=== PATIENT | male | born 1950 | race Caucasian/White ===

== ENCOUNTER 2016-12-21 12:33 | Outpatient (CLI) | payer MEDICARE, OTHER | END 2016-12-21 23:59 | LOC: LAB.WCP 12:33 | PROVIDERS: ATTEND Family Medicine | DX: Z00.00 Encounter for general adult medical examination without abnormal findings (principal); Z12.5 Encounter for screening for malignant neoplasm of prostate | CPT/HCPCS: 36415; 86787; G0103; 84153 ==

== ENCOUNTER 2016-12-21 12:38 | Outpatient (CLI) | payer MEDICARE, OTHER | END 2016-12-21 23:59 | DX: Z12.5 Encounter for screening for malignant neoplasm of prostate (principal) ==

== ENCOUNTER 2017-10-10 08:00 | Outpatient (CLI) | payer MEDICARE ==
[2017-10-10 13:09] LABS: BASOPHILS % (AUTO) 0.7 %; EOSINOPHILS # (AUTO) 0.2 10^3/uL (0.0-0.7); EOSINOPHILS % (AUTO) 5.4 %; HGB - HEMOGLOBIN 14.5 g/dL (14.0-18.0); LYMPHOCYTES # (AUTO) 2.2 10^3/uL (1.5-3.5); MEAN CORPUSCULAR HEMOGLOBIN 34.4 pg (27.0-31.0); MEAN CORPUSCULAR HGB CONC 34.3 g/dL (32.0-36.0); MEAN CORPUSCULAR VOLUME 100.1 fL (80.0-94.0); MEAN PLATELET VOLUME 9.1 fL (7.4-11.4); MONOCYTES # (AUTO) 0.4 10^3/uL (0.0-1.0); MONOCYTES % (AUTO) 8.1 %; NEUTROPHILS # (AUTO) 1.6 10^3/uL (1.5-6.6); NEUTROPHILS % (AUTO) 35.8 %; PLT - PLATELET COUNT 166 10^3/uL (130-450); RED CELL DISTRIBUTION WIDTH 12.4 % (12.0-15.0); WHITE BLOOD COUNT 4.5 x10^3/uL (4.8-10.8)
[2017-10-10 14:05] LABS: ALBUMIN 4.6 g/dL (3.2-5.5); ALBUMIN/GLOBULIN RATIO 1.8 (1.0-2.2); ALKALINE PHOSPHATASE 56 IU/L (42-121); ALT ALANINE AMINOTRANSFERASE 40 IU/L (10-60); AST ASPARTATE AMINOTRANSFERASE 32 IU/L (10-42); BILIRUBIN,TOTAL 1.7 mg/dL (0.2-1.0); BUN - BLOOD UREA NITROGEN 15 mg/dL (6-20); CALCIUM 9.1 mg/dL (8.5-10.3); CARBON DIOXIDE - CO2 26 mmol/L (21-32); CHLORIDE 104 mmol/L (101-111); CHOL/HDL RATIO 2.5 (<5.0); CHOLESTEROL 173 mg/dL; CREATININE 0.9 mg/dL (0.6-1.2); GFR - MDRD 84 (>89); GLUCOSE 100 mg/dL (70-100); HDL CHOLESTEROL 69 mg/dL; LDL CHOLESTEROL,CALCULATED 67 mg/dL; SODIUM 137 mmol/L (135-145); TOTAL PROTEIN 7.2 g/dL (6.7-8.2); VLDL CHOLESTEROL 37 mg/dL
== END 2017-10-10 08:01 | disposition home or self-care (01) ==
LOC: LAB.WCP 08:00
PROVIDERS: ATTEND Family Medicine
DX: I10 Essential (primary) hypertension (principal); E78.5 Hyperlipidemia, unspecified
CPT/HCPCS: 36415; 80053; 80061; 83721; 85025

== ENCOUNTER 2017-11-05 09:50 | Emergency (ER) | payer MEDICARE ==
[2017-11-05 10:07] VITALS: BP 140/79
--- NOTE | 2017-11-05 10:32 | ED Physician Documentation ---
History of Present Illness - Stated complaint Stated Complaint: LEFT LEG SWOLLEN/PX - Chief complaint Chief Complaint: Ext Problem - History obtained from History obtained from: Patient - History of Present Illness Timing: How many days ago (3) - Additonal information Additional information: 67-year-old male recalls that about 3 days ago he played 18 holes of golf and was working on a shed at his home. He was awakened in the middle of the night by an acute cramp in his left leg posteriorly cramping was from the calf all the way up to the mid thigh and this was unrelenting for about an hour and a half. The patient noticed the next day that he had some swelling to the entire leg and he has some pain over the Achilles tendon. He is worried about a DVT. He did not otherwise injure the leg but he did do a lot of work that that day and he thinks it may be possible that he was dehydrated as well. Review of Systems Constitutional: denies: Fever, Chills, Myalgias Eyes: denies: Decreased vision Ears: denies: Ear pain Nose: denies: Congestion Throat: denies: Sore throat Cardiac: denies: Chest pain / pressure, Palpitations Respiratory: denies: Dyspnea, Cough GI: denies: Abdominal Pain, Nausea, Vomiting, Constipation, Diarrhea : denies: Dysuria, Frequency Skin: denies: Rash Musculoskeletal: reports: Extremity pain, Extremity swelling. denies: Neck pain , Back pain, Joint swelling, Pain with weight bearing Neurologic: denies: Generalized weakness, Focal weakness, Numbness PD PAST MEDICAL HISTORY - Past Medical History Past Medical History: Yes Cardiovascular: Hypertension, High cholesterol Respiratory: None Endocrine/Autoimmune: None GI: None : Benign prostate hypertrophy, Kidney stones HEENT: Chronic vision loss, Other Psych: None Musculoskeletal: Chronic back pain Derm: None - Past Surgical History Past Surgical History: Yes General: Colonoscopy Ortho: Arthroscopic surgery HEENT: Other - Present Medications Home Medications: Ambulatory Orders Medication Instructions Recorded Confirmed Losartan Potassium 100 mg PO DAILY 10/21/15 10/21/15 Simvastatin 40 mg PO QPM 10/21/15 10/21/15 Tamsulosin [Flomax] 0.4 mg PO QPM 10/21/15 10/21/15 - Allergies Allergies/Adverse Reactions: Allergies Allergy/AdvReac Type Severity Reaction Status Date / Time codeine AdvReac Intermediate Nausea Verified 11/05/17 10:07 - Social History Does the pt smoke?: No Smoking Status: Never smoker Does the pt drink ETOH?: No Does the pt have substance abuse?: No - Immunizations Immunizations are current?: Yes PD ED PE NORMAL - Vitals Vital signs reviewed: Yes (hypertensive ) - General General: Alert and oriented X 3, No acute distress, Well developed/nourished - HEENT HEENT: Atraumatic, PERRL, EOMI - Respiratory Respiratory: No respiratory distress - Derm Derm: Normal color, Warm and dry, No rash - Extremities Extremities: No deformity, No edema, Other (There is some mild tenderness to the posterior calf and thigh to the mid thigh. There is no palpable cord and the achellies is tender. ) - Neuro Neuro: No motor deficit, No sensory deficit Eye Opening: Spontaneous Motor: Obeys Commands Verbal: Oriented GCS Score: 15 - Psych Psych: Normal mood, Normal affect Results - Vitals Vitals: Vital Signs - 24 hr 11/05/17 10:02 Temperature 36.9 C Heart Rate 83 Respiratory 18 Rate Blood Pressure 140/79 H O2 Saturation 97 Oxygen O2 Source Room air - Rads (name of study) Duplex ultrasound veins left Radiology: Prelim report reviewed (Impression: No DVT.), EMP read indepedently, See rad report Procedures - IVC sono (time) 1030 Bedside IVC sono: IVC measures (cm) (1.51), Euvolemia PD MEDICAL DECISION MAKING - ED course Complexity details: reviewed results, re-evaluated patient, considered differential, d/w patient ED course: 67-year-old male with a cramp to the back of his calf and thigh several days ago has had some swelling of the calf and thigh and exam for DVT is undertaken with ultrasound. He did do significant amount of work the day that this occurred and he thinks he may have been dehydrated. He is not dehydrated here today but his symptoms certainly could have been result from dehydration and cramping. Departure - Departure Disposition: 01 Home, Self Care Clinical Impression: Exercise-induced leg cramps Condition: Stable Instructions: ED Cramp Heat Follow-Up: Igor Nuñez MD [Primary Care Provider] - Comments: Today there is no evidence of deep vein thrombosis. I suspect the severe pain who had a near leg was related to dehydration after excessive use. My recommendation is to hydrate regularly and excessively when you are doing physical activity. Reduce your level of activity but continue to be active.
--- NOTE | 2017-11-05 12:03 | Ultrasound Report ---
LEFT LEG VENOUS DUPLEX: 11/05/2017 CLINICAL INDICATION: Swelling, pain. TECHNIQUE: Real-time sonographic vascular imaging was performed by the vp talent management through the left lower extremity utilizing both color flow and Doppler spectral analysis. Multiple [employer] products sales representative static images were saved for review. FINDINGS: A left lower extremity venous sonogram is performed revealing the common femoral, superficial femoral, profunda femoris, and popliteal veins to be adequately visualized without intraluminal defects. There is normal venous compression, augmentation, phasicity, and spontaneity of venous flow. In the calf, the visualized more cephalad portions of posterior tibial and peroneal veins are grossly compressible, without filling defects. IMPRESSION: NO EVIDENCE OF DEEP VENOUS THROMBOSIS. TD: 11/05/2017 12:03
[2017-11-05] MEDS ORDERED: DEXAMETHASONE 10 MG/ML VIAL PO STA (12:08)
== END 2017-11-05 12:17 | disposition home or self-care (01) ==
LOC: ED 09:50
DX: R25.2 Cramp and spasm (principal); I10 Essential (primary) hypertension; E78.00 Pure hypercholesterolemia, unspecified
CPT/HCPCS: 99282; 99283

== ENCOUNTER 2017-12-25 13:06 | Outpatient (CLI) | payer MEDICARE, OTHER | END 2017-12-25 13:07 | disposition home or self-care (01) | LOC: LAB.WCP 13:06 | PROVIDERS: ATTEND Family Medicine | DX: Z12.5 Encounter for screening for malignant neoplasm of prostate (principal) | CPT/HCPCS: 36415; G0103; 84153 ==

== ENCOUNTER 2018-07-10 08:59 | Outpatient (CLI) | payer MEDICARE, OTHER ==
[2018-07-10 14:26] LABS: BASOPHILS % (AUTO) 0.6 %; EOSINOPHILS # (AUTO) 0.3 10^3/uL (0.0-0.7); EOSINOPHILS % (AUTO) 7.5 %; HGB - HEMOGLOBIN 14.1 g/dL (14.0-18.0); LYMPHOCYTES # (AUTO) 1.7 10^3/uL (1.5-3.5); LYMPHOCYTES % (AUTO) 45.4 %; MEAN CORPUSCULAR HGB CONC 34.4 g/dL (32.0-36.0); MEAN CORPUSCULAR VOLUME 101.9 fL (80.0-94.0); MEAN PLATELET VOLUME 9.3 fL (7.4-11.4); MONOCYTES # (AUTO) 0.3 10^3/uL (0.0-1.0); MONOCYTES % (AUTO) 6.6 %; NEUTROPHILS # (AUTO) 1.5 10^3/uL (1.5-6.6); NEUTROPHILS % (AUTO) 39.9 %; PLT - PLATELET COUNT 162 10^3/uL (130-450); RED BLOOD COUNT 4.02 10^6/uL (4.70-6.10); RED CELL DISTRIBUTION WIDTH 12.7 % (12.0-15.0); WHITE BLOOD COUNT 3.8 x10^3/uL (4.8-10.8)
[2018-07-10 14:40] LABS: ALBUMIN 4.8 g/dL (3.2-5.5); ALBUMIN/GLOBULIN RATIO 1.8 (1.0-2.2); ALKALINE PHOSPHATASE 56 IU/L (42-121); ALT ALANINE AMINOTRANSFERASE 35 IU/L (10-60); AST ASPARTATE AMINOTRANSFERASE 27 IU/L (10-42); BILIRUBIN,TOTAL 1.4 mg/dL (0.2-1.0); BUN - BLOOD UREA NITROGEN 17 mg/dL (6-20); CALCIUM 9.1 mg/dL (8.5-10.3); CARBON DIOXIDE - CO2 27 mmol/L (21-32); CHLORIDE 103 mmol/L (101-111); CHOL/HDL RATIO 2.5 (<5.0); CHOLESTEROL 176 mg/dL; CREATININE 0.9 mg/dL (0.6-1.2); GFR - MDRD 84 (>89); GLUCOSE 116 mg/dL (70-100); HDL CHOLESTEROL 70 mg/dL; LDL CHOLESTEROL,CALCULATED 79 mg/dL; LDL/HDL RATIO 1.1 (<3.6); SODIUM 139 mmol/L (135-145); TOTAL PROTEIN 7.5 g/dL (6.7-8.2); VLDL CHOLESTEROL 27 mg/dL
== END 2018-07-10 09:00 | disposition home or self-care (01) ==
LOC: LAB.WCP 08:59
PROVIDERS: ATTEND Family Medicine
DX: I10 Essential (primary) hypertension (principal); E78.5 Hyperlipidemia, unspecified; N40.1 Benign prostatic hyperplasia with lower urinary tract symptoms
CPT/HCPCS: 36415; 80053; 80061; 83721; 84153; 84443; 85025

== ENCOUNTER 2019-09-11 09:00 | Outpatient (CLI) | payer MEDICARE, OTHER ==
[2019-09-11 12:29] LABS: BASOPHILS # (AUTO) 0.1 10^3/uL (0.0-0.1); BASOPHILS % (AUTO) 1.1 %; EOSINOPHILS # (AUTO) 0.3 10^3/uL (0.0-0.7); EOSINOPHILS % (AUTO) 6.5 %; HGB - HEMOGLOBIN 14.9 g/dL (14.0-18.0); LYMPHOCYTES # (AUTO) 2.3 10^3/uL (1.5-3.5); MEAN CORPUSCULAR HGB CONC 33.3 g/dL (32.0-36.0); MEAN CORPUSCULAR VOLUME 102.3 fL (80.0-94.0); MEAN PLATELET VOLUME 10.6 fL (7.4-11.4); MONOCYTES # (AUTO) 0.3 10^3/uL (0.0-1.0); MONOCYTES % (AUTO) 6.2 %; NEUTROPHILS # (AUTO) 1.7 10^3/uL (1.5-6.6); NEUTROPHILS % (AUTO) 36.8 %; PLT - PLATELET COUNT 168 10^3/uL (130-450); RED BLOOD COUNT 4.38 10^6/uL (4.70-6.10); RED CELL DISTRIBUTION WIDTH 11.9 % (12.0-15.0); WHITE BLOOD COUNT 4.7 x10^3/uL (4.8-10.8)
[2019-09-11 13:14] LABS: ALBUMIN 4.9 g/dL (3.2-5.5); ALBUMIN/GLOBULIN RATIO 1.6 (1.0-2.2); ALKALINE PHOSPHATASE 54 IU/L (42-121); ALT ALANINE AMINOTRANSFERASE 38 IU/L (10-60); AST ASPARTATE AMINOTRANSFERASE 27 IU/L (10-42); BILIRUBIN,TOTAL 1.2 mg/dL (0.2-1.0); BUN - BLOOD UREA NITROGEN 19 mg/dL (6-20); CALCIUM 9.2 mg/dL (8.5-10.3); CARBON DIOXIDE - CO2 28 mmol/L (21-32); CHLORIDE 99 mmol/L (101-111); CHOL/HDL RATIO 2.8 (<5.0); CHOLESTEROL 209 mg/dL; GFR - MDRD 74 (>89); GLUCOSE 105 mg/dL (70-100); HDL CHOLESTEROL 76 mg/dL; LDL CHOLESTEROL,CALCULATED 92 mg/dL; LDL/HDL RATIO 1.2 (<3.6); SODIUM 139 mmol/L (135-145); TOTAL PROTEIN 7.9 g/dL (6.7-8.2); VLDL CHOLESTEROL 41 mg/dL
== END 2019-09-11 23:59 | disposition home or self-care (01) ==
LOC: LAB.N 09:00
PROVIDERS: ATTEND Family Medicine
DX: I10 Essential (primary) hypertension (principal); E78.5 Hyperlipidemia, unspecified; Z12.5 Encounter for screening for malignant neoplasm of prostate; N40.0 Benign prostatic hyperplasia without lower urinary tract symptoms
CPT/HCPCS: 36415; 80053; 80061; 84443; 85025; G0103; 83721; 84153

== ENCOUNTER 2020-05-25 08:33 | Outpatient (CLI) | payer MEDICARE, OTHER ==
[2020-05-25 12:30] LABS: BASOPHILS % (AUTO) 0.6 %; EOSINOPHILS # (AUTO) 0.2 10^3/uL (0.0-0.7); EOSINOPHILS % (AUTO) 4.4 %; HGB - HEMOGLOBIN 14.5 g/dL (14.0-18.0); LYMPHOCYTES # (AUTO) 2.6 10^3/uL (1.5-3.5); LYMPHOCYTES % (AUTO) 49.4 %; MEAN CORPUSCULAR HEMOGLOBIN 35.3 pg (27.0-31.0); MEAN CORPUSCULAR VOLUME 103.6 fL (80.0-94.0); MONOCYTES # (AUTO) 0.4 10^3/uL (0.0-1.0); MONOCYTES % (AUTO) 7.5 %; NEUTROPHILS % (AUTO) 37.7 %; PLT - PLATELET COUNT 153 10^3/uL (130-450); RED BLOOD COUNT 4.11 10^6/uL (4.70-6.10); RED CELL DISTRIBUTION WIDTH 11.9 % (12.0-15.0); WHITE BLOOD COUNT 5.2 x10^3/uL (4.8-10.8)
[2020-05-25 12:31] LABS: ALBUMIN 4.5 g/dL (3.2-5.5); ALBUMIN/GLOBULIN RATIO 1.6 (1.0-2.2); ALKALINE PHOSPHATASE 61 IU/L (42-121); ALT ALANINE AMINOTRANSFERASE 35 IU/L (10-60); AST ASPARTATE AMINOTRANSFERASE 29 IU/L (10-42); BILIRUBIN,TOTAL 1.6 mg/dL (0.2-1.0); BUN - BLOOD UREA NITROGEN 13 mg/dL (6-20); CALCIUM 9.2 mg/dL (8.5-10.3); CARBON DIOXIDE - CO2 28 mmol/L (21-32); CHLORIDE 102 mmol/L (101-111); CHOL/HDL RATIO 2.8 (<5.0); CHOLESTEROL 193 mg/dL; CREATININE 0.9 mg/dL (0.6-1.2); GLUCOSE 106 mg/dL (70-100); HDL CHOLESTEROL 68 mg/dL; LDL CHOLESTEROL,CALCULATED 95 mg/dL; LDL/HDL RATIO 1.4 (<3.6); SODIUM 140 mmol/L (135-145); TOTAL PROTEIN 7.3 g/dL (6.7-8.2); VLDL CHOLESTEROL 30 mg/dL
== END 2020-05-25 23:59 | disposition home or self-care (01) ==
LOC: LAB.WCP 08:33
PROVIDERS: ATTEND Family Medicine
DX: I10 Essential (primary) hypertension (principal); E78.5 Hyperlipidemia, unspecified; N40.1 Benign prostatic hyperplasia with lower urinary tract symptoms
CPT/HCPCS: 36415; 80053; 80061; 83721; 84153; 84443; 85025

== ENCOUNTER 2020-12-02 08:00 | Outpatient (CLI) | payer MEDICARE, OTHER ==
[2020-12-02 17:47] LABS: BASOPHILS % (AUTO) 0.5 %; EOSINOPHILS # (AUTO) 0.2 10^3/uL (0.0-0.7); EOSINOPHILS % (AUTO) 4.2 %; HCT - HEMATOCRIT 43.6 % (42.0-52.0); HGB - HEMOGLOBIN 14.3 g/dL (14.0-18.0); LYMPHOCYTES # (AUTO) 1.8 10^3/uL (1.5-3.5); LYMPHOCYTES % (AUTO) 45.2 %; MEAN CORPUSCULAR HEMOGLOBIN 34.1 pg (27.0-31.0); MEAN CORPUSCULAR HGB CONC 32.8 g/dL (32.0-36.0); MEAN CORPUSCULAR VOLUME 104.1 fL (80.0-94.0); MEAN PLATELET VOLUME 10.7 fL (7.4-11.4); MONOCYTES # (AUTO) 0.3 10^3/uL (0.0-1.0); MONOCYTES % (AUTO) 8.2 %; NEUTROPHILS # (AUTO) 1.7 10^3/uL (1.5-6.6); NEUTROPHILS % (AUTO) 41.4 %; PLT - PLATELET COUNT 170 10^3/uL (130-450); RED BLOOD COUNT 4.19 10^6/uL (4.70-6.10); RED CELL DISTRIBUTION WIDTH 12.2 % (12.0-15.0)
[2020-12-02 18:04] LABS: ALBUMIN 4.8 g/dL (3.2-5.5); ALBUMIN/GLOBULIN RATIO 1.6 (1.0-2.2); ALKALINE PHOSPHATASE 68 IU/L (42-121); ALT ALANINE AMINOTRANSFERASE 29 IU/L (10-60); AST ASPARTATE AMINOTRANSFERASE 25 IU/L (10-42); BILIRUBIN,TOTAL 1.3 mg/dL (0.2-1.0); BUN - BLOOD UREA NITROGEN 15 mg/dL (6-20); CALCIUM 9.3 mg/dL (8.5-10.3); CARBON DIOXIDE - CO2 27 mmol/L (21-32); CHLORIDE 104 mmol/L (101-111); CHOL/HDL RATIO 2.6 (<5.0); CHOLESTEROL 196 mg/dL; CREATININE 0.8 mg/dL (0.6-1.2); GFR - MDRD 96 (>89); GLUCOSE 94 mg/dL (70-100); HDL CHOLESTEROL 76 mg/dL; LDL CHOLESTEROL,CALCULATED 97 mg/dL; LDL/HDL RATIO 1.3 (<3.6); POTASSIUM 3.7 mmol/L (3.5-5.0); SODIUM 140 mmol/L (135-145); TOTAL PROTEIN 7.8 g/dL (6.7-8.2); TRIGLYCERIDES 114 mg/dL; VLDL CHOLESTEROL 23 mg/dL
[2020-12-02 18:14] LABS: THYROID STIMULATING HORMONE 1.1 uIU/mL (0.34-5.60)
== END 2020-12-02 23:59 | disposition home or self-care (01) ==
LOC: LAB.WCP 08:00
PROVIDERS: ATTEND Internal Medicine
DX: I10 Essential (primary) hypertension (principal); E78.5 Hyperlipidemia, unspecified; Z12.5 Encounter for screening for malignant neoplasm of prostate; R10.9 Unspecified abdominal pain
CPT/HCPCS: 36415; 80053; 80061; 84443; 85025; 86787; G0103; 83721; 84153

== ENCOUNTER 2021-11-01 08:52 | Outpatient (CLI) | payer MEDICARE, OTHER ==
[2021-11-01 12:49] LABS: BASOPHILS % (AUTO) 0.6 %; EOSINOPHILS # (AUTO) 0.2 10^3/uL (0.0-0.7); EOSINOPHILS % (AUTO) 4.1 %; HCT - HEMATOCRIT 43.2 % (42.0-52.0); HGB - HEMOGLOBIN 14.6 g/dL (14.0-18.0); LYMPHOCYTES # (AUTO) 2.7 10^3/uL (1.5-3.5); LYMPHOCYTES % (AUTO) 52.8 %; MEAN CORPUSCULAR HEMOGLOBIN 34.1 pg (27.0-31.0); MEAN CORPUSCULAR HGB CONC 33.8 g/dL (32.0-36.0); MEAN CORPUSCULAR VOLUME 100.9 fL (80.0-94.0); MEAN PLATELET VOLUME 10.4 fL (7.4-11.4); MONOCYTES # (AUTO) 0.3 10^3/uL (0.0-1.0); MONOCYTES % (AUTO) 6.1 %; NEUTROPHILS # (AUTO) 1.8 10^3/uL (1.5-6.6); PLT - PLATELET COUNT 162 10^3/uL (130-450); RED BLOOD COUNT 4.28 10^6/uL (4.70-6.10); RED CELL DISTRIBUTION WIDTH 11.7 % (12.0-15.0); WHITE BLOOD COUNT 5.1 x10^3/uL (4.8-10.8)
[2021-11-01 12:53] LABS: ALBUMIN 4.5 g/dL (3.2-5.5); ALBUMIN/GLOBULIN RATIO 1.6 (1.0-2.2); ALKALINE PHOSPHATASE 63 IU/L (42-121); ALT ALANINE AMINOTRANSFERASE 35 IU/L (10-60); AST ASPARTATE AMINOTRANSFERASE 26 IU/L (10-42); BILIRUBIN,TOTAL 1.1 mg/dL (0.2-1.0); BUN - BLOOD UREA NITROGEN 16 mg/dL (6-20); CARBON DIOXIDE - CO2 29 mmol/L (21-32); CHLORIDE 99 mmol/L (101-111); CHOL/HDL RATIO 2.3 (<5.0); CHOLESTEROL 175 mg/dL; CREATININE 0.8 mg/dL (0.6-1.2); GFR - MDRD 96 (>89); GLUCOSE 101 mg/dL (70-100); HDL CHOLESTEROL 75 mg/dL; LDL CHOLESTEROL,CALCULATED 71 mg/dL; LDL/HDL RATIO 0.9 (<3.6); POTASSIUM 4.1 mmol/L (3.5-5.0); SODIUM 137 mmol/L (135-145); TOTAL PROTEIN 7.3 g/dL (6.7-8.2); TRIGLYCERIDES 145 mg/dL; VLDL CHOLESTEROL 29 mg/dL
[2021-11-01 12:55] LABS: THYROID STIMULATING HORMONE 2.66 uIU/mL (0.34-5.60)
== END 2021-11-01 08:53 | disposition home or self-care (01) ==
LOC: LAB.N 08:52
PROVIDERS: ATTEND Surgery Vascular Surgery
DX: I10 Essential (primary) hypertension (principal); N40.1 Benign prostatic hyperplasia with lower urinary tract symptoms; E78.5 Hyperlipidemia, unspecified
CPT/HCPCS: 36415; 80053; 80061; 83721; 84153; 84443; 85025

== ENCOUNTER 2023-05-01 09:07 | Outpatient (CLI) | payer OTHER, MEDICARE ==
[2023-05-01 11:49] LABS: BASOPHILS % (AUTO) 0.7 %; EOSINOPHILS # (AUTO) 0.2 10^3/uL (0.0-0.7); EOSINOPHILS % (AUTO) 4.8 %; HCT - HEMATOCRIT 42.1 % (42.0-52.0); LYMPHOCYTES # (AUTO) 2.3 10^3/uL (1.5-3.5); LYMPHOCYTES % (AUTO) 55.4 %; MEAN CORPUSCULAR HEMOGLOBIN 34.6 pg (27.0-31.0); MEAN CORPUSCULAR HGB CONC 33.3 g/dL (32.0-36.0); MEAN PLATELET VOLUME 10.7 fL (7.4-11.4); MONOCYTES # (AUTO) 0.3 10^3/uL (0.0-1.0); MONOCYTES % (AUTO) 6.7 %; NEUTROPHILS # (AUTO) 1.3 10^3/uL (1.5-6.6); NEUTROPHILS % (AUTO) 32.2 %; PLT - PLATELET COUNT 157 10^3/uL (130-450); RED BLOOD COUNT 4.05 10^6/uL (4.70-6.10); RED CELL DISTRIBUTION WIDTH 11.8 % (12.0-15.0); WHITE BLOOD COUNT 4.2 x10^3/uL (4.8-10.8)
[2023-05-01 12:08] LABS: ALBUMIN 4.6 g/dL (3.2-5.5); ALKALINE PHOSPHATASE 63 IU/L (42-121); ALT ALANINE AMINOTRANSFERASE 24 IU/L (10-60); AST ASPARTATE AMINOTRANSFERASE 19 IU/L (10-42); BILIRUBIN,TOTAL 1.2 mg/dL (0.2-1.0); BUN - BLOOD UREA NITROGEN 13 mg/dL (6-20); CALCIUM 9.4 mg/dL (8.5-10.3); CARBON DIOXIDE - CO2 28 mmol/L (21-32); CHLORIDE 106 mmol/L (101-111); CHOLESTEROL 159 mg/dL; CREATININE 0.8 mg/dL (0.6-1.3); GFR - MDRD 95 (>89); GLUCOSE 104 mg/dL (74-104); HDL CHOLESTEROL 78 mg/dL; LDL CHOLESTEROL,CALCULATED 52 mg/dL; LDL/HDL RATIO 0.7 (<3.6); POTASSIUM 4.1 mmol/L (3.5-4.5); SODIUM 140 mmol/L (135-145); TOTAL PROTEIN 6.9 g/dL (6.4-8.9); TRIGLYCERIDES 147 mg/dL (48-352); VLDL CHOLESTEROL 29 mg/dL
== END 2023-05-01 09:08 | disposition home or self-care (01) ==
LOC: LAB.N 09:07
PROVIDERS: ATTEND Internal Medicine
DX: I10 Essential (primary) hypertension (principal); E78.5 Hyperlipidemia, unspecified; N40.1 Benign prostatic hyperplasia with lower urinary tract symptoms
CPT/HCPCS: 36415; 80053; 80061; 83721; 84153; 85025